=== PATIENT | male | born 1955 | race Caucasian/White ===

== ENCOUNTER 2021-06-26 13:56 | Outpatient (CLI) | payer MEDICARE, BC | END 2021-06-26 13:57 | disposition home or self-care (01) | LOC: EEG 13:56 | PROVIDERS: ATTEND Psychiatry & Neurology Neurology | DX: R41.89 Other symptoms and signs involving cognitive functions and awareness (principal) | CPT/HCPCS: 95816; 95957 ==

== ENCOUNTER 2023-01-06 11:43 | Outpatient (CLI) | payer MEDICARE | END 2023-01-06 11:44 | disposition home or self-care (01) | LOC: SCSMRI 11:43 | PROVIDERS: ATTEND Psychiatry & Neurology Neurology | DX: G31.09 Other frontotemporal neurocognitive disorder (principal) | CPT/HCPCS: 70551 ==

== ENCOUNTER → 2023-01-06 | Outpatient (CLI) | payer MEDICARE | LOC: PET 08:45 | PROVIDERS: ATTEND Psychiatry & Neurology Neurology | DX: G31.09 Other frontotemporal neurocognitive disorder (principal) | CPT/HCPCS: 78803; A9552 ==